=== PATIENT | male | born 1935 | race Caucasian/White ===

== ENCOUNTER 2022-06-17 10:28 | Emergency (ER) | payer MEDICARE, BC ==
[2022-06-17 11:22] LABS: ESTIMATED GFR 29 mL/min (>60)
[2022-06-17 11:26] VITALS: BP 138/69; PULSE 64
== END 2022-06-17 14:21 ==
LOC: FB.ED 10:28
DX: S09.90XA Unspecified injury of head, initial encounter (principal); N18.9 Chronic kidney disease, unspecified; Z88.8 Allergy status to other drugs, medicaments and biological substances; W01.10XA Fall on same level from slipping, tripping and stumbling with subsequent striking against unspecified object, initial encounter
CPT/HCPCS: 36415; 70450; 80053; 81001; 84484; 85025; 85610; 93005; 93010; 99283; 99285

== ENCOUNTER 2023-02-22 10:02 | Inpatient (IN) | payer MEDICARE, BC ==
[2023-02-22 10:47] LABS: HEMOGLOBIN 12.6 g/dL (12.9-17.7); RED BLOOD CELL COUNT 4.12 x10(6)uL (3.90-5.90); WHITE BLOOD CELL COUNT,WBC 8.4 x10-3/uL (3.2-10.1)
[2023-02-22 10:50] LABS: HEMATOCRIT 37.1 % (38.3-50.1); MEAN CORPUSCULAR HEMOGLOBIN 30.5 pg (27.0-33.3); MEAN CORPUSCULAR HGB CONC 33.9 g/dL (28.7-35.3); MEAN CORPUSCULAR VOLUME 90.1 fL (80.8-98.7); MEAN PLATELET VOLUME 9.6 fL (6.7-11.0); PLATELET COUNT,PLT 171 x10(3)uL (117-477); RED CELL DISTRIBUTION WIDTH 14.2 % (12.4-15.0)
[2023-02-22 10:54] LABS: INR 2.23 (1.00-1.24); PROTHROMBIN TIME 22.5 sec (9.0-11.1)
[2023-02-22 11:04] LABS: ALANINE AMINOTRANSFERASE,ALT 25 U/L (12-36); ALBUMIN 3.5 g/dL (3.2-4.6); ALKALINE PHOSPHATASE 54 IU/L (56-112); ASPARTATE AMNIOTRANSFERASE,AST 46 IU/L (5-25); BILIRUBIN TOTAL 1.1 mg/dL (0.1-1.3); BLOOD UREA NITROGEN,BUN 32 mg/dL (7-18); BUN/CREATININE RATIO 14.5 (9-20); CALCIUM 8.9 mg/dL (8.6-10.2); CARBON DIOXIDE,CO2 23 mmol/L (21-32); CHLORIDE,CL 99 mmol/L (100-110); EST CRCL DRUG DOSING (CG) 24.89 mL/min; ESTIMATED GFR 28 mL/min (>60); GLUCOSE RANDOM 100 mg/dL (80-116); LYMPHOCYTES PERCENT MAN 10 % (13-37); MONOCYTES PERCENT MAN 10 % (4-12); POTASSIUM,K 4.1 mmol/L (3.5-5.3); PROTEIN TOTAL,TP 7.2 g/dL (6.0-8.0); SEG NEUTROPHILS PERCENT MAN 80 % (46-82); SODIUM,NA 134 mmol/L (135-145)
[2023-02-22 11:09] LABS: CREATININE 2.2 mg/dL (0.70-1.30)
[2023-02-22 11:29] LABS: INFLUENZA A NAA NEGATIVE (NEGATIVE); INFLUENZA B NAA NEGATIVE (NEGATIVE); RESPIRATORY SYNCYTIAL VIR NAA NEGATIVE (NEGATIVE)
[2023-02-22 11:32] LABS: MAGNESIUM 1.9 mg/dL (1.8-2.5); PHOSPHORUS 3.2 mg/dL (2.6-4.6)
[2023-02-22 11:33] LABS: CORONAVIRUS COVID-19 NAA POSITIVE (NEGATIVE)
[2023-02-22] MEDS ORDERED: REMDESIVIR 200 MG in Sodium Chloride 0.9% 250 ML IV ONE (11:43)
[2023-02-22 13:48] LABS: BILIRUBIN,URINE NEGATIVE (NEGATIVE); GLUCOSE,URINE NORMAL (NORMAL); KETONES,URINE NEGATIVE (NEGATIVE); LEUKOCYTE ESTERASE,URINE NEGATIVE (NEGATIVE); NITRITE,URINE NEGATIVE (NEGATIVE); OCCULT BLOOD,URINE LARGE (NEGATIVE); PROTEIN,URINE NEGATIVE (NEGATIVE); UROBILINOGEN,URINE NORMAL (NEGATIVE)
[2023-02-22 13:58] LABS: APPEARANCE,URINE CLEAR (CLEAR); COLOR,URINE YELLOW (YELLOW)
[2023-02-22 13:59] LABS: BACTERIA,URINE FEW (NS); RBC,URINE 0-5 (0-5); SQUAMOUS EPITHELIAL CELLS,UR RARE (NS,R,O); WBC,URINE 0-5 (0-5)
[2023-02-22] MEDS ORDERED: Melatonin 3 MG Tab PO PRN (17:26)
[2023-02-22] MEDS ORDERED: Furosemide 20 MG Tab PO PRN (17:26)
[2023-02-22] MEDS ORDERED: Warfarin 2.5 MG Tab PO ONE (18:30)
[2023-02-22] MEDS: Acetaminophen 325 MG Tab PO PRN (18:38)
[2023-02-23 07:04] LABS: HEMOGLOBIN 12.6 g/dL (12.9-17.7); MEAN CORPUSCULAR HEMOGLOBIN 30.1 pg (27.0-33.3); MEAN CORPUSCULAR HGB CONC 33.2 g/dL (28.7-35.3); MEAN CORPUSCULAR VOLUME 90.6 fL (80.8-98.7); RED BLOOD CELL COUNT 4.2 x10(6)uL (3.90-5.90); RED CELL DISTRIBUTION WIDTH 13.7 % (12.4-15.0); WHITE BLOOD CELL COUNT,WBC 8.3 x10-3/uL (3.2-10.1)
[2023-02-23 07:08] LABS: BLOOD UREA NITROGEN,BUN 39 mg/dL (7-18); BUN/CREATININE RATIO 17.7 (9-20); CALCIUM 8.9 mg/dL (8.6-10.2); CARBON DIOXIDE,CO2 26 mmol/L (21-32); CHLORIDE,CL 102 mmol/L (100-110); EST CRCL DRUG DOSING (CG) 24.89 mL/min; ESTIMATED GFR 28 mL/min (>60); GLUCOSE RANDOM 95 mg/dL (80-116); POTASSIUM,K 3.8 mmol/L (3.5-5.3); SODIUM,NA 137 mmol/L (135-145)
[2023-02-23 07:10] LABS: INR 2.12 (1.00-1.24); PROTHROMBIN TIME 21.3 sec (9.0-11.1)
[2023-02-23 07:14] LABS: CREATININE 2.2 mg/dL (0.70-1.30)
[2023-02-23] MEDS ORDERED: Rosuvastatin 20 MG Tab PO SCH (09:00)
[2023-02-23] MEDS ORDERED: Tamsulosin 0.4 MG Cap.ER PO SCH (09:00)
[2023-02-23] MEDS: Furosemide 20 MG Tab PO SCH (09:01)
[2023-02-23] MEDS: Potassium Chloride 10 MEQ Tab.ER PO SCH (09:01)
[2023-02-23] MEDS: Cholecalciferol (Vitamin D3) 25 MCG Tab PO SCH (09:01)
[2023-02-23] MEDS: Aspirin 81 MG Tab.Chew PO SCH (09:01)
[2023-02-23] MEDS: Lisinopril 5 MG Tab PO SCH (09:01)
[2023-02-23] MEDS: Calcitriol 0.25 MCG Cap PO SCH (09:02)
[2023-02-23] MEDS: Finasteride 5 MG Tab PO SCH (09:02)
[2023-02-23] MEDS ORDERED: Warfarin 2.5 MG Tab PO SCH (16:00)
[2023-02-23] MEDS: Tamsulosin 0.4 MG Cap.ER PO SCH (20:51)
[2023-02-23] MEDS: Rosuvastatin 20 MG Tab PO SCH (20:51)
[2023-02-24] MEDS: Finasteride 5 MG Tab PO SCH (08:28)
[2023-02-24] MEDS: Lisinopril 5 MG Tab PO SCH (08:29)
[2023-02-24] MEDS: Potassium Chloride 10 MEQ Tab.ER PO SCH (08:29)
[2023-02-24] MEDS: Cholecalciferol (Vitamin D3) 25 MCG Tab PO SCH (08:29)
[2023-02-24] MEDS: Calcitriol 0.25 MCG Cap PO SCH (08:29)
[2023-02-24] MEDS: Aspirin 81 MG Tab.Chew PO SCH (08:30)
[2023-02-24] MEDS: Furosemide 20 MG Tab PO SCH (08:30)
[2023-02-24] MEDS ORDERED: Warfarin Sliding Scale PO SCH (09:45)
[2023-02-24 10:27] LABS: INR 1.91 (1.00-1.24); PROTHROMBIN TIME 19.3 sec (9.0-11.1)
[2023-02-24] MEDS: Acetaminophen 325 MG Tab PO PRN (15:10)
[2023-02-24] MEDS ORDERED: Warfarin 2.5 MG Tab PO SCH (16:00)
[2023-02-24] MEDS: Rosuvastatin 20 MG Tab PO SCH (20:17)
[2023-02-24] MEDS: Tamsulosin 0.4 MG Cap.ER PO SCH (20:18)
[2023-02-25 06:46] LABS: INR 2.22 (1.00-1.24); PROTHROMBIN TIME 22.3 sec (9.0-11.1)
[2023-02-25] MEDS: Calcitriol 0.25 MCG Cap PO SCH (08:27)
[2023-02-25] MEDS: Furosemide 20 MG Tab PO SCH (08:27)
[2023-02-25] MEDS: Potassium Chloride 10 MEQ Tab.ER PO SCH (08:27)
[2023-02-25] MEDS: Finasteride 5 MG Tab PO SCH (08:28)
[2023-02-25] MEDS: Cholecalciferol (Vitamin D3) 25 MCG Tab PO SCH (08:28)
[2023-02-25] MEDS: Lisinopril 5 MG Tab PO SCH (08:28)
[2023-02-25] MEDS: Aspirin 81 MG Tab.Chew PO SCH (08:28)
[2023-02-25] MEDS: Acetaminophen 325 MG Tab PO PRN (08:30)
[2023-02-25 12:01] VITALS: BP 127/59; PULSE 70
== END 2023-02-25 10:40 | disposition home health service (06) | DRG 178 ==
LOC: FB.ED 10:02 → FB.MS 12:34 → OBSVTOIN 02-23 09:14
PROVIDERS: ADMIT Family Medicine; ATTEND Family Medicine
PROC: XW033E5 Introduction of Remdesivir Anti-infective into Peripheral Vein, Percutaneous Approach, New Technology Group 5 (ICD-10-PCS; principal; 2023-02-22)
DX: U07.1 COVID-19 (principal); I13.0 Hypertensive heart and chronic kidney disease with heart failure and stage 1 through stage 4 chronic kidney disease, or unspecified chronic kidney disease; I48.92 Unspecified atrial flutter; N18.4 Chronic kidney disease, stage 4 (severe); R29.6 Repeated falls; I48.91 Unspecified atrial fibrillation; I25.10 Atherosclerotic heart disease of native coronary artery without angina pectoris; I50.9 Heart failure, unspecified; G89.29 Other chronic pain; E78.00 Pure hypercholesterolemia, unspecified; M54.9 Dorsalgia, unspecified; M10.9 Gout, unspecified; F41.9 Anxiety disorder, unspecified; F32.A Depression, unspecified; F03.90 Unspecified dementia, unspecified severity, without behavioral disturbance, psychotic disturbance, mood disturbance, and anxiety; G93.89 Other specified disorders of brain; W19.XXXA Unspecified fall, initial encounter; Y93.01 Activity, walking, marching and hiking; I35.9 Nonrheumatic aortic valve disorder, unspecified; Y92.89 Other specified places as the place of occurrence of the external cause; Z86.73 Personal history of transient ischemic attack (TIA), and cerebral infarction without residual deficits; Z88.8 Allergy status to other drugs, medicaments and biological substances; Z79.82 Long term (current) use of aspirin; Z79.01 Long term (current) use of anticoagulants; Z79.899 Other long term (current) drug therapy; Z98.890 Other specified postprocedural states; Z95.4 Presence of other heart-valve replacement; Z78.9 Other specified health status; Z95.1 Presence of aortocoronary bypass graft; I25.2 Old myocardial infarction; Z87.891 Personal history of nicotine dependence; Z90.89 Acquired absence of other organs
CPT/HCPCS: 0241U; 36415; 70450; 71046; 72125; 80048; 80053; 81001; 83735; 84100; 85025; 85027; 85610; 86140; 93005; 93010; 96365; 97116-GP; 97161-GP; 97165-GO; 97530-GP; 99285; 99285-25; A9270-GY; J7050

== ENCOUNTER 2023-03-10 15:58 | Emergency (ER) | payer MEDICARE, BC ==
[2023-03-10] MEDS ORDERED: Sodium Chloride 0.9% 1,000 ML IV ONE (16:17)
[2023-03-10 16:34] LABS: BASOPHILS ABSOLUTE AUTO 0.1 x10-3/uL (0.0-0.3); BASOPHILS PERCENT AUTO 0.9 % (0.3-3.8); EOSINOPHILS ABSOLUTE AUTO 0.1 x10-3/uL (0.0-0.6); EOSINOPHILS PERCENT AUTO 0.6 % (0.1-6.8); HEMOGLOBIN 12.3 g/dL (12.9-17.7); LYMPHOCYTES PERCENT AUTO 11.8 % (15.8-45.3); MEAN CORPUSCULAR HGB CONC 33.4 g/dL (28.7-35.3); MEAN CORPUSCULAR VOLUME 89.9 fL (80.8-98.7); MEAN PLATELET VOLUME 9.7 fL (6.7-11.0); MONOCYTES ABSOLUTE AUTO 0.8 x10-3/uL (0.0-1.2); MONOCYTES PERCENT AUTO 9.1 % (5.5-15.2); NEUTROPHILS ABSOLUTE AUTO 6.7 x10-3/uL (1.7-6.9); NEUTROPHILS PERCENT AUTO 77.6 % (40.3-71.8); PLATELET COUNT,PLT 218 x10(3)uL (117-477); RED BLOOD CELL COUNT 4.11 x10(6)uL (3.90-5.90); WHITE BLOOD CELL COUNT,WBC 8.7 x10-3/uL (3.2-10.1)
[2023-03-10 16:35] LABS: BASE EXCESS VENOUS,POC -3 mmol/L (-2 - 3+); PCO2 VENOUS,POC 36 mmHg (41-51); PH VENOUS,POC 7.38 pH Units (7.32-7.43)
[2023-03-10 16:37] LABS: INR 1.84 (1.00-1.24); PROTHROMBIN TIME 18.6 sec (9.0-11.1)
[2023-03-10 16:42] LABS: A/G RATIO 0.9; ALANINE AMINOTRANSFERASE,ALT 36 U/L (12-36); ALBUMIN 3.3 g/dL (3.2-4.6); ALKALINE PHOSPHATASE 75 IU/L (56-112); ASPARTATE AMNIOTRANSFERASE,AST 21 IU/L (5-25); BILIRUBIN TOTAL 0.6 mg/dL (0.1-1.3); BLOOD UREA NITROGEN,BUN 47 mg/dL (7-18); BUN/CREATININE RATIO 16.8 (9-20); CALCIUM 9.2 mg/dL (8.6-10.2); CARBON DIOXIDE,CO2 27 mmol/L (21-32); CHLORIDE,CL 102 mmol/L (100-110); ESTIMATED GFR 21 mL/min (>60); GLUCOSE RANDOM 106 mg/dL (80-116); POTASSIUM,K 4.7 mmol/L (3.5-5.3); PROTEIN TOTAL,TP 7.2 g/dL (6.0-8.0); SODIUM,NA 137 mmol/L (135-145)
[2023-03-10 16:44] LABS: CREATININE 2.8 mg/dL (0.70-1.30)
[2023-03-10 16:48] LABS: TROPONIN I 35.4 pg/mL (4.0-60.3)
[2023-03-10 16:50] LABS: C-REACTIVE PROTEIN < 0.50 mg/dL (<0.50); PRO B-TYPE NATRIUR PEPT,BNPPRO 1369 pg/mL (<=450)
[2023-03-10 19:06] LABS: BILIRUBIN,URINE NEGATIVE (NEGATIVE); GLUCOSE,URINE NORMAL (NORMAL); KETONES,URINE NEGATIVE (NEGATIVE); LEUKOCYTE ESTERASE,URINE NEGATIVE (NEGATIVE); NITRITE,URINE NEGATIVE (NEGATIVE); OCCULT BLOOD,URINE NEGATIVE (NEGATIVE); PROTEIN,URINE NEGATIVE (NEGATIVE); UROBILINOGEN,URINE NORMAL (NEGATIVE)
[2023-03-10 19:11] LABS: APPEARANCE,URINE CLEAR (CLEAR); BACTERIA,URINE FEW (NS); COLOR,URINE YELLOW (YELLOW); RBC,URINE 0-5 (0-5); SQUAMOUS EPITHELIAL CELLS,UR FEW (NS,R,O); WBC,URINE 0-5 (0-5)
[2023-03-10 19:52] VITALS: BP 141/75; PULSE 62
== END 2023-03-10 19:40 | disposition home or self-care (01) ==
LOC: FB.ED 15:58
DX: E86.0 Dehydration (principal); N18.9 Chronic kidney disease, unspecified; I10 Essential (primary) hypertension; I25.2 Old myocardial infarction; E78.00 Pure hypercholesterolemia, unspecified; Z86.16 Personal history of COVID-19; Z79.899 Other long term (current) drug therapy; Z79.82 Long term (current) use of aspirin; Z79.01 Long term (current) use of anticoagulants; Z88.8 Allergy status to other drugs, medicaments and biological substances
CPT/HCPCS: 36415; 71046; 80053; 81001; 83880; 84484; 85025; 85610; 86140; 93005; 93010; 96360; 96361; 99283; 99285-25; J7030

== ENCOUNTER 2023-06-20 16:25 | Emergency (ER) | payer MEDICARE, BC ==
[2023-06-20 17:52] VITALS: BP 151/60; PULSE 54
== END 2023-06-20 17:35 | disposition home or self-care (01) ==
LOC: FB.ED 16:25
DX: K92.1 Melena (principal); Z71.1 Person with feared health complaint in whom no diagnosis is made; E78.00 Pure hypercholesterolemia, unspecified; I10 Essential (primary) hypertension; I25.2 Old myocardial infarction; I48.91 Unspecified atrial fibrillation; Z79.82 Long term (current) use of aspirin; Z86.19 Personal history of other infectious and parasitic diseases; Z86.16 Personal history of COVID-19; Z87.891 Personal history of nicotine dependence; Z79.01 Long term (current) use of anticoagulants; Z79.899 Other long term (current) drug therapy
CPT/HCPCS: 82272; 99283

== ENCOUNTER 2024-01-20 01:21 | Emergency (ER) | payer MEDICARE, BC ==
[2024-01-20] MEDS: methylPREDNISolone Sodium Succinate 40 MG/1 ML SDV IM ONE (01:46)
[2024-01-20] MEDS: Albuterol/Ipratropium 3.0-0.5 MG/3 ML Neb Soln NEB ONE (01:46)
[2024-01-20 02:17] LABS: A/G RATIO 0.7; ALANINE AMINOTRANSFERASE,ALT 50 U/L (12-36); ALBUMIN 2.7 g/dL (3.2-4.6); ALKALINE PHOSPHATASE 93 IU/L (56-112); ASPARTATE AMNIOTRANSFERASE,AST 41 IU/L (5-25); BILIRUBIN TOTAL 0.8 mg/dL (0.1-1.3); BLOOD UREA NITROGEN,BUN 59 mg/dL (7-18); BUN/CREATININE RATIO 19.7 (9-20); CALCIUM 9.1 mg/dL (8.6-10.2); CARBON DIOXIDE,CO2 21 mmol/L (21-32); CHLORIDE,CL 109 mmol/L (100-110); ESTIMATED GFR 19 mL/min (>60); GLUCOSE RANDOM 145 mg/dL (80-116); POTASSIUM,K 5.1 mmol/L (3.5-5.3); PROTEIN TOTAL,TP 6.5 g/dL (6.0-8.0); SODIUM,NA 142 mmol/L (135-145)
[2024-01-20 02:19] LABS: HEMATOCRIT 35.2 % (38.3-50.1); HEMOGLOBIN 11.4 g/dL (12.9-17.7); MEAN CORPUSCULAR HEMOGLOBIN 29.5 pg (27.0-33.3); MEAN CORPUSCULAR HGB CONC 32.3 g/dL (28.7-35.3); MEAN CORPUSCULAR VOLUME 91.5 fL (80.8-98.7); MEAN PLATELET VOLUME 9.9 fL (6.7-11.0); PLATELET COUNT,PLT 238 x10(3)uL (117-477); RED BLOOD CELL COUNT 3.85 x10(6)uL (3.90-5.90); RED CELL DISTRIBUTION WIDTH 14.4 % (12.4-15.0); WHITE BLOOD CELL COUNT,WBC 17.3 x10-3/uL (3.2-10.1)
[2024-01-20 02:35] LABS: LYMPHOCYTES PERCENT MAN 2 % (13-37); MONOCYTES PERCENT MAN 3 % (4-12); SEG NEUTROPHILS PERCENT MAN 95 % (46-82)
[2024-01-20 05:38] LABS: ALBUMIN 2.7 g/dL (3.2-4.6); BILIRUBIN DIRECT 0.36 mg/dL (0.10-0.20); BILIRUBIN TOTAL 0.8 mg/dL (0.1-1.3); PROTEIN TOTAL,TP 6.4 g/dL (6.0-8.0)
[2024-01-20] MEDS: REMDESIVIR 200 MG in Sodium Chloride 0.9% 250 ML IV ONE (06:33)
[2024-01-20 07:41] LABS: LACTIC ACID 1.2 mmol/L (0.4-2.0)
[2024-01-20] MEDS: cefTRIAXone 1 GM Vial IVPUSH ONE (07:43)
[2024-01-20] MEDS: Azithromycin 500 MG in Sodium Chloride 0.9% 250 ML IV ONE (07:45)
[2024-01-20 08:21] VITALS: BP 146/71; PULSE 93
[2024-01-20 08:48] LABS: BASE EXCESS VENOUS,POC -6 mmol/L (-2 - 3+); PCO2 VENOUS,POC 27 mmHg (41-51); PH VENOUS,POC 7.41 pH Units (7.32-7.43)
[2024-01-20] MEDS: cefTRIAXone 1 GM in Sodium Chloride 0.9% 50 ML IV ONE (09:00)
== END 2024-01-20 10:15 ==
LOC: FB.ED 01:21
DX: U07.1 COVID-19 (principal); J96.91 Respiratory failure, unspecified with hypoxia; I12.9 Hypertensive chronic kidney disease with stage 1 through stage 4 chronic kidney disease, or unspecified chronic kidney disease; N18.9 Chronic kidney disease, unspecified; I48.91 Unspecified atrial fibrillation; I25.2 Old myocardial infarction; E78.00 Pure hypercholesterolemia, unspecified; Z86.73 Personal history of transient ischemic attack (TIA), and cerebral infarction without residual deficits; Z86.16 Personal history of COVID-19; Z95.1 Presence of aortocoronary bypass graft; Z79.01 Long term (current) use of anticoagulants; Z79.899 Other long term (current) drug therapy; Z79.82 Long term (current) use of aspirin; Z88.8 Allergy status to other drugs, medicaments and biological substances
CPT/HCPCS: 36415; 71045; 80053; 80076; 83605; 83880; 84484; 85025; 93005; 96365; 96367; 96372; 96375; 99285-25; J0248; J0456; J0696; J2919; J7050; J7620; U0002